=== PATIENT | female | born 1955 | race Caucasian/White ===

== ENCOUNTER 2016-06-11 17:57 | Inpatient (IN) | payer OTHER ==
[2016-06-11 18:44] LABS: HEMOGLOBIN 14.4 gm/dl (12.3-15.3); RED BLOOD COUNT 4.5 M/UL (4.00-5.10); WHITE BLOOD COUNT 17.2 K/UL (4.5-11.0)
[2016-06-11 19:23] LABS: BUN/CREATININE RATIO 17 (0-10)
[2016-06-12 03:22] LABS: HEMOGLOBIN 15.1 gm/dl (12.3-15.3); RED BLOOD COUNT 4.79 M/UL (4.00-5.10); WHITE BLOOD COUNT 18.2 K/UL (4.5-11.0)
[2016-06-12 04:01] LABS: BUN/CREATININE RATIO 16 (0-10)
[2016-06-12 11:54] LABS: BUN/CREATININE RATIO 16 (0-10)
[2016-06-12] MEDS ORDERED: ALPRAZOLAM0.5 MG PO (18:34)
[2016-06-12] MEDS ORDERED: ZOLPIDEM TARTRA10 MG PO (18:46)
[2016-06-12] MEDS ORDERED: ESCITALOPRAM OX20 MG PO (18:47)
[2016-06-12] MEDS ORDERED: PERCOCET 10-321 EACH PO (18:48)
[2016-06-12] MEDS ORDERED: NEURONTIN300 MG PO (18:49)
[2016-06-13 04:29] LABS: BUN/CREATININE RATIO 12 (0-10)
[2016-06-13 19:19] LABS: BUN/CREATININE RATIO 14 (0-10)
[2016-06-14 04:07] LABS: HEMOGLOBIN 12.9 gm/dl (12.3-15.3); RED BLOOD COUNT 4.07 M/UL (4.00-5.10); WHITE BLOOD COUNT 13.7 K/UL (4.5-11.0)
[2016-06-14 04:23] LABS: BUN/CREATININE RATIO 14 (0-10)
[2016-06-14 11:59] LABS: BUN/CREATININE RATIO 12 (0-10)
== END 2016-06-14 19:30 | disposition short-term general hospital (02) | DRG 871 ==
LOC: ER1 17:57 → ZEROF 20:20 → CCU 20:20
PROVIDERS: Family Medicine; Student in an Organized Health Care Education/Training Program; ADMIT Hospitalist
PROC: 0BH17EZ Insertion of Endotracheal Airway into Trachea, Via Natural or Artificial Opening (ICD-10-PCS; principal; 2016-06-11)
PROC: 5A1945Z Respiratory Ventilation, 24-96 Consecutive Hours (ICD-10-PCS; principal; 2016-06-11)
PROC: 3E0G76Z Introduction of Nutritional Substance into Upper GI, Via Natural or Artificial Opening (ICD-10-PCS; 2016-06-12)
DX: A41.89 Other specified sepsis (principal); N17.1 Acute kidney failure with acute cortical necrosis; J96.01 Acute respiratory failure with hypoxia; I63.22 Cerebral infarction due to unspecified occlusion or stenosis of basilar artery; R40.20 Unspecified coma; I60.9 Nontraumatic subarachnoid hemorrhage, unspecified; J15.8 Pneumonia due to other specified bacteria; C34.90 Malignant neoplasm of unspecified part of unspecified bronchus or lung; M62.82 Rhabdomyolysis; E23.2 Diabetes insipidus; I16.1 Hypertensive emergency; R00.1 Bradycardia, unspecified; Z16.30 Resistance to unspecified antimicrobial drugs; R65.20 Severe sepsis without septic shock; F17.210 Nicotine dependence, cigarettes, uncomplicated; G20 Parkinson's disease; L81.8 Other specified disorders of pigmentation; Z79.891 Long term (current) use of opiate analgesic; Z79.899 Other long term (current) drug therapy
CPT/HCPCS: 31500; 36415; 36600; 70450; 71010; 72125; 80048; 80053; 80202; 80307; 81001; 82010; 82533; 82550; 82553; 82803; 82947; 82962; 83036; 83605; 83874; 83935; 84132; 84206; 84300; 84484; 84681; 85025; 85027; 85610; 85730; 87040; 87070; 87077; 87086; 87205; 93005; 94002; 94003; 95819; 96361; 96365; 96366; 96367; 96375; 99291; A4628; C9113; G0480; J0330; J0360; J1610; J1650; J1956; J2060; J2543; J3370; J7030; J7040; J7050; J7070